=== PATIENT | male | born 1940 | race Caucasian/White ===

== ENCOUNTER 2022-10-28 15:25 | Emergency (ER) | payer OTHER ==
[2022-10-28] MEDS ORDERED: CLIN300C70 PO (16:55)
[2022-10-28 17:01] VITALS: BP 160/92; PULSE 107; RESP 96; TEMP 97.1; O2SAT 94
== END 2022-10-28 17:03 | disposition home or self-care (01) ==
LOC: ER 15:25
DX: S50.11XA Contusion of right forearm, initial encounter (principal); S50.861A Insect bite (nonvenomous) of right forearm, initial encounter; Z79.2 Long term (current) use of antibiotics; W57.XXXA Bitten or stung by nonvenomous insect and other nonvenomous arthropods, initial encounter; Y93.89 Activity, other specified; Y92.89 Other specified places as the place of occurrence of the external cause; Y99.8 Other external cause status